=== PATIENT | female | born 1970 | race Caucasian/White ===

== ENCOUNTER 2018-08-28 21:38 | Emergency (ER) | payer OTHER ==
[~2018-08-28] VITALS: Ht 165.1 cm; Wt 82.1 kg
[~2018-08-28 21:38] MED LIST: ACYCLOVIR 200200 MG PO; BENICAR20 MG; CARISOPRODOL; CARISOPRODOL 3350 MG PO; FAMCYCLOVIR 50500 M1; GENTAMICIN100 MG/100 NASAL; MOBIC7.5 MG; OMEPRAZOLE20 M2; XYZAL5 MG PO; ZOFRAN ODT4 MG PO
[2018-08-28] MEDS ORDERED: SULCRAFATE (21:47)
[2018-08-28] MEDS ORDERED: FLONASE 0.05%50 MCG NASAL (21:47)
[2018-08-28] MEDS ORDERED: VYVANSE50 MG PO (21:48)
[2018-08-28] MEDS ORDERED: PROAIR HFA8.5 GM (21:48)
[2018-08-28] MEDS ORDERED: OMEPRAZOLE 20 M20 M1 PO (21:48)
[2018-08-28] MEDS ORDERED: XYZAL5 MG PO (21:49)
[2018-08-28] MEDS ORDERED: VITAMIN B-12500 MCG PO (21:50)
[2018-08-28] MEDS ORDERED: UNICOMPLEX M TA1 TA1 PO (21:50)
[2018-08-28] MEDS ORDERED: DIPHENHIST50 MG PO (21:51)
[2018-08-28] MEDS ORDERED: ZPAK PO (21:52)
[2018-08-28] MEDS ORDERED: PREDNISONE 20 M20 MG PO (21:52)
[2018-08-29] MEDS ORDERED: DEXAMETHASONE 44 M1 PO (00:09)
[2018-08-29 00:15] VITALS: BP 140/90
== END 2018-08-29 00:15 | disposition home or self-care (01) ==
LOC: M.ERS 21:38
DX: L50.9 Urticaria, unspecified (principal); I10 Essential (primary) hypertension; K21.9 Gastro-esophageal reflux disease without esophagitis; Z88.6 Allergy status to analgesic agent; Z88.0 Allergy status to penicillin; Z91.041 Radiographic dye allergy status; Z90.49 Acquired absence of other specified parts of digestive tract